=== PATIENT | female | born 1995 | race African-American/Black ===

== ENCOUNTER 2016-12-14 03:27 | Emergency (ER) | payer BC, OTHER ==
[~2016-12-14] VITALS: Ht 177.8 cm; Wt 93.4 kg
[~2016-12-14 03:27] MED LIST: ACETAMINOPHEN-120 ML PO; NAPROSYN500 MG PO; NOHOMEMEDICATIONS; PHENERGAN 25 MG25 MG PO
[2016-12-14 03:28] VITALS: BP 132/65
[2016-12-14] MEDS ORDERED: TOBREX5 ML OPHTHALMIC (03:50)
[2016-12-14] MEDS ORDERED: PREDNISONE 20 M20 MG PO (03:50)
== END 2016-12-14 04:27 | disposition home or self-care (01) ==
LOC: ER 03:27
DX: H01.004 Unspecified blepharitis left upper eyelid (principal); H01.005 Unspecified blepharitis left lower eyelid; L50.9 Urticaria, unspecified

== ENCOUNTER 2017-01-20 05:01 | Emergency (ER) | payer BC, OTHER ==
[~2017-01-20] VITALS: Ht 177.8 cm; Wt 96.6 kg
[~2017-01-20 05:01] MED LIST changes: +PREDNISONE 20 M20 MG PO; +TOBREX5 ML OPHTHALMIC
[2017-01-20 05:42] LABS: HEMATOCRIT 37.2 % (37.0-47.0); HEMOGLOBIN 12.4 gm/dL (12.0-15.0); MCH 30.1 pg (26.0-34.0); MCHC 33.5 g/dL (28.0-37.0); MCV 89.9 fL (80.0-100.0); PLATELET COUNT 288 thou/uL (150-400); RBC 4.14 mil/uL (4.20-5.00); RDW 14.2 % (10.5-14.5); WBC 14.1 thou/uL (4.0-11.0)
[2017-01-20 05:50] LABS: MANUAL DIFF YES
[2017-01-20 05:50] LABS: URINE BILIRUBIN NEGATIVE (Negative); URINE BLOOD NEGATIVE (Negative); URINE COLOR YELLOW; URINE GLUCOSE-RANDOM* NEGATIVE (Negative); URINE KETONES NEGATIVE (Negative); URINE LEUKOCYTES-REFLEX NEGATIVE (Negative); URINE PROTEIN (DIPSTICK) TRACE (Negative); URINE SPECIFIC GRAVITY 1.025 (1.003-1.035); URINE UROBILINOGEN 0.2 E.U./dl (0.2-1.0)
[2017-01-20 05:56] LABS: CALCIUM 8.7 mg/dL (8.5-10.1); CREATININE 0.8 mg/dL (0.6-1.0); POTASSIUM 3.6 mmol/L (3.5-5.1)
[2017-01-20] MEDS ORDERED: ZOFRAN ODT8 MG PO (05:59)
[2017-01-20] MEDS ORDERED: TRAMADOL 50 MG50 MG PO (05:59)
[2017-01-20 06:01] LABS: ALBUMIN 3.9 g/dL (3.4-5.0); TOTAL BILIRUBIN 0.5 mg/dL (<0.1-1.0); TOTAL PROTEIN 8.2 g/dL (6.4-8.2)
[2017-01-20 06:43] LABS: ABSOLUTE NEUTROPHILS 13.3 thou/uL (1.4-8.2); ANISOCYTOSIS 1+; TOTAL CELL COUNT 100
[2017-01-20 08:33] VITALS: BP 141/84
== END 2017-01-20 08:05 | disposition home or self-care (01) ==
LOC: ER 05:01
PROVIDERS: Emergency Medicine
DX: K52.9 Noninfective gastroenteritis and colitis, unspecified (principal); F17.200 Nicotine dependence, unspecified, uncomplicated

== ENCOUNTER 2017-01-22 12:52 | Emergency (ER) | payer BC, OTHER ==
[~2017-01-22] VITALS: Ht 180.3 cm; Wt 72.6 kg
[~2017-01-22 12:52] MED LIST changes: +TRAMADOL 50 MG50 MG PO; +ZOFRAN ODT8 MG PO
[2017-01-22 13:39] LABS: URINE BILIRUBIN NEGATIVE (Negative); URINE BLOOD TRACE (Negative); URINE COLOR YELLOW; URINE GLUCOSE-RANDOM* NEGATIVE (Negative); URINE KETONES NEGATIVE (Negative); URINE LEUKOCYTES-REFLEX NEGATIVE (Negative); URINE PROTEIN (DIPSTICK) NEGATIVE (Negative); URINE SPECIFIC GRAVITY 1.015 (1.003-1.035); URINE UROBILINOGEN 0.2 E.U./dl (0.2-1.0)
[2017-01-22 15:10] LABS: ABSOLUTE NEUTROPHILS 8.6 thou/uL (1.4-8.2); BASOPHILS 0.2 % (0.0-2.0); EOSINOPHILS 0.4 % (0.0-3.0); HEMATOCRIT 37.5 % (37.0-47.0); HEMOGLOBIN 12.7 gm/dL (12.0-15.0); LYMPHOCYTES 12.4 % (24.0-44.0); MCH 30.5 pg (26.0-34.0); MCHC 33.9 g/dL (28.0-37.0); MONOCYTES 6.7 % (1.0-8.0); PLATELET COUNT 259 thou/uL (150-400); POLYS 80.3 % (36.0-66.0); RBC 4.17 mil/uL (4.20-5.00); WBC 10.7 thou/uL (4.0-11.0)
[2017-01-22 15:16] LABS: MANUAL DIFF NO
[2017-01-22 15:19] LABS: CALCIUM 8.5 mg/dL (8.5-10.1); CREATININE 0.7 mg/dL (0.6-1.0); POTASSIUM 3.3 mmol/L (3.5-5.1)
[2017-01-22 15:24] LABS: ALBUMIN 3.5 g/dL (3.4-5.0); TOTAL BILIRUBIN 0.3 mg/dL (<0.1-1.0); TOTAL PROTEIN 7.5 g/dL (6.4-8.2)
[2017-01-22 17:06] VITALS: BP 138/96
== END 2017-01-22 17:24 | disposition home or self-care (01) ==
LOC: ER 12:52
PROVIDERS: Physician Assistant
DX: R11.10 Vomiting, unspecified (principal); R10.84 Generalized abdominal pain

== ENCOUNTER 2017-03-11 14:47 | Emergency (ER) | payer BC, OTHER | END 2017-03-11 17:25 | disposition home or self-care (01) | LOC: ER 14:47 | DX: R10.84 Generalized abdominal pain (principal); R11.2 Nausea with vomiting, unspecified; R19.7 Diarrhea, unspecified ==

== ENCOUNTER 2018-08-24 14:09 | Emergency (ER) | payer BC, OTHER ==
[~2018-08-24] VITALS: Ht 180.3 cm; Wt 97.5 kg
[~2018-08-24 14:09] MED LIST changes: +MOBIC7.5 MG PO; +ONDANSETRON HCL4 M2 PO
[2018-08-24 15:17] LABS: ABSOLUTE NEUTROPHILS 11.6 thou/uL (1.4-8.2); BASOPHILS 0.1 % (0.0-2.0); HEMATOCRIT 37.4 % (37.0-47.0); HEMOGLOBIN 12.9 gm/dL (12.0-15.0); LYMPHOCYTES 6.2 % (24.0-44.0); MCH 30.7 pg (26.0-34.0); MCHC 34.5 g/dL (28.0-37.0); MCV 88.9 fL (80.0-100.0); MONOCYTES 2.5 % (1.0-8.0); PLATELET COUNT 279 thou/uL (150-400); POLYS 91.2 % (36.0-66.0); RBC 4.21 mil/uL (4.20-5.00); RDW 13.7 % (10.5-14.5); WBC 12.8 thou/uL (4.0-11.0)
[2018-08-24 15:24] LABS: CALCIUM 9.5 mg/dL (8.5-10.1); CREATININE 0.7 mg/dL (0.6-1.0); POTASSIUM 3.3 mmol/L (3.5-5.1)
[2018-08-24 15:30] LABS: TOTAL BILIRUBIN 0.6 mg/dL (<0.1-1.0); TOTAL PROTEIN 8.3 g/dL (6.4-8.2)
[2018-08-24 15:49] VITALS: BP 130/88
[2018-08-24 16:11] LABS: URINE BILIRUBIN NEGATIVE (Negative); URINE BLOOD TRACE (Negative); URINE CLARITY CLEAR; URINE COLOR YELLOW; URINE GLUCOSE-RANDOM* NEGATIVE (Negative); URINE KETONES 3+ (Negative); URINE LEUKOCYTES-REFLEX NEGATIVE (Negative); URINE NITRITE-REFLEX NEGATIVE (Negative); URINE PROTEIN (DIPSTICK) TRACE (Negative); URINE UROBILINOGEN 0.2 E.U./dl (0.2-1.0)
[2018-08-24] MEDS ORDERED: LEVSIN0.125 MG PO (16:58)
[2018-08-24] MEDS ORDERED: ONDANSETRON HCL4 M2 PO (16:58)
--- NOTE | 2018-08-25 10:57 | EKG ---
[address] [address] ELECTROCARDIOGRAM REPORT Name: IZABEL TREVINO Room #: [place]#: [id number] Admission: 08/24/18 Attend Phys: Discharge: 08/24/18 Date of : [birth year] Report #: [id number] THIS REPORT FOR: //name// [facility] ED Test Date: 2018-08-24 Test Time: 15:12:58 Pat Name: IZABEL TREVINO Department: Room: Gender: F [employer] Assistant: TOLU : 1995 Requested By: Milana Dorantes Order Number: [id number] MD: Brice Herzog Measurements Intervals [place] Rate: 68 P: 73 FL: 180 QRS: 79 QRSD: 106 T: 29 QT: 416 QTc: 443 Interpretive Statements Sinus rhythm Probable left atrial enlargement No previous ECG available for comparison Electronically Signed On 08-25-2018 10:56:53 MARINE FITTER by Brice Herzog [email or web address] <ELECTRONICALLY SIGNED> By: Brice Herzog MD 08/25/18 1056 1512 1512 Brice Herzog MD /EPI
== END 2018-08-24 17:09 | disposition home or self-care (01) ==
LOC: ER 14:09
PROVIDERS: Physician Assistant
DX: R10.84 Generalized abdominal pain (principal); E86.0 Dehydration; R11.2 Nausea with vomiting, unspecified; E87.6 Hypokalemia; F12.10 Cannabis abuse, uncomplicated

== ENCOUNTER 2018-08-25 20:21 | Emergency (ER) | payer BC, OTHER ==
[~2018-08-25] VITALS: Ht 180.3 cm; Wt 97.5 kg
[~2018-08-25 20:21] MED LIST changes: +LEVSIN0.125 MG PO
[2018-08-25 21:01] LABS: URINE BILIRUBIN NEGATIVE (Negative); URINE BLOOD NEGATIVE (Negative); URINE CLARITY CLEAR; URINE COLOR YELLOW; URINE GLUCOSE-RANDOM* NEGATIVE (Negative); URINE KETONES NEGATIVE (Negative); URINE LEUKOCYTES-REFLEX NEGATIVE (Negative); URINE NITRITE-REFLEX NEGATIVE (Negative); URINE PROTEIN (DIPSTICK) NEGATIVE (Negative); URINE SPECIFIC GRAVITY 1.025 (1.005-1.035)
[2018-08-25 21:11] LABS: AMP/METHAMP Negative (Negative); BARBITURATES Negative (Negative); BENZODIAZEPINES Negative (Negative); COCAINE Negative (Negative); METHADONE Negative (Negative); OPIATES Negative (Negative); PCP Negative (Negative)
[2018-08-25 22:03] VITALS: BP 123/74
== END 2018-08-25 22:09 | disposition home or self-care (01) ==
LOC: ER 20:21
PROVIDERS: Emergency Medicine
DX: G24.02 Drug induced acute dystonia (principal); Z79.899 Other long term (current) drug therapy

== ENCOUNTER 2018-12-22 22:34 | Emergency (ER) | payer BC, OTHER ==
[~2018-12-22] VITALS: Ht 180.3 cm; Wt 95.3 kg
[2018-12-22 23:36] LABS: URINE BILIRUBIN NEGATIVE (Negative); URINE BLOOD NEGATIVE (Negative); URINE CLARITY CLEAR; URINE COLOR YELLOW; URINE GLUCOSE-RANDOM* NEGATIVE (Negative); URINE KETONES NEGATIVE (Negative); URINE LEUKOCYTES NEGATIVE (Negative); URINE NITRITE NEGATIVE (Negative); URINE PROTEIN (DIPSTICK) TRACE (Negative); URINE SPECIFIC GRAVITY >= 1.030 (1.005-1.035); URINE UROBILINOGEN 0.2 E.U./dl (0.2-1.0)
[2018-12-22 23:40] LABS: ABSOLUTE NEUTROPHILS 4.5 thou/uL (1.4-8.2); EOSINOPHILS 3.4 % (0.0-3.0); HEMATOCRIT 36.4 % (37.0-47.0); HEMOGLOBIN 12.3 gm/dL (12.0-15.0); LYMPHOCYTES 37.3 % (24.0-44.0); MCH 30.7 pg (26.0-34.0); MCHC 33.9 g/dL (28.0-37.0); MCV 90.5 fL (80.0-100.0); MONOCYTES 7.7 % (1.0-8.0); PLATELET COUNT 244 thou/uL (150-400); POLYS 50.6 % (36.0-66.0); RBC 4.02 mil/uL (4.20-5.00); RDW 13.5 % (10.5-14.5); WBC 8.9 thou/uL (4.0-11.0)
[2018-12-22 23:44] LABS: CALCIUM 8.6 mg/dL (8.5-10.1); CREATININE 0.6 mg/dL (0.6-1.0); POTASSIUM 3.3 mmol/L (3.5-5.1)
[2018-12-22 23:50] LABS: ALBUMIN 3.8 g/dL (3.4-5.0); TOTAL BILIRUBIN 0.3 mg/dL (<0.1-1.0); TOTAL PROTEIN 7.5 g/dL (6.4-8.2)
[2018-12-23] MEDS ORDERED: NORCO 5-325 TA1 EAC1 PO (01:30)
[2018-12-23 01:37] VITALS: BP 135/97
== END 2018-12-23 01:37 | disposition home or self-care (01) ==
LOC: ER 22:34
PROVIDERS: Emergency Medicine
DX: R10.32 Left lower quadrant pain (principal); F17.210 Nicotine dependence, cigarettes, uncomplicated; Z90.49 Acquired absence of other specified parts of digestive tract

== ENCOUNTER 2019-01-01 13:24 | Emergency (ER) | payer BC, OTHER ==
[~2019-01-01] VITALS: Ht 180.3 cm; Wt 95.3 kg
[~2019-01-01 13:24] MED LIST changes: +NORCO 5-325 TA1 EAC1 PO
[2019-01-01 13:49] LABS: URINE BILIRUBIN NEGATIVE (Negative); URINE BLOOD NEGATIVE (Negative); URINE CLARITY CLEAR; URINE COLOR YELLOW; URINE GLUCOSE-RANDOM* NEGATIVE (Negative); URINE KETONES NEGATIVE (Negative); URINE LEUKOCYTES-REFLEX NEGATIVE (Negative); URINE NITRITE-REFLEX NEGATIVE (Negative); URINE PROTEIN (DIPSTICK) TRACE (Negative); URINE SPECIFIC GRAVITY 1.015 (1.005-1.035)
[2019-01-01 14:38] LABS: ABSOLUTE NEUTROPHILS 10.6 thou/uL (1.4-8.2); BASOPHILS 0.5 % (0.0-2.0); HEMATOCRIT 33.6 % (37.0-47.0); HEMOGLOBIN 11.3 gm/dL (12.0-15.0); LYMPHOCYTES 9.9 % (24.0-44.0); MCH 30.1 pg (26.0-34.0); MCHC 33.6 g/dL (28.0-37.0); MCV 89.7 fL (80.0-100.0); MONOCYTES 4.5 % (1.0-8.0); PLATELET COUNT 262 thou/uL (150-400); POLYS 84.1 % (36.0-66.0); RBC 3.75 mil/uL (4.20-5.00); RDW 13.5 % (10.5-14.5); WBC 12.6 thou/uL (4.0-11.0)
[2019-01-01 14:43] LABS: ANION GAP 9 mmol/L (7-16); BUN 6 mg/dL (7-18); CALCIUM 8.7 mg/dL (8.5-10.1); CHLORIDE 105 mmol/L (98-107); CO2 23 mmol/L (21-32); CREATININE 0.6 mg/dL (0.6-1.0); GLUCOSE 107 mg/dL (74-106); POTASSIUM 3.8 mmol/L (3.5-5.1); SODIUM 137 mmol/L (136-145)
[2019-01-01 14:50] LABS: ALBUMIN 3.4 g/dL (3.4-5.0); DIRECT BILIRUBIN < 0.1 mg/dL (<0.1-0.3); LIPASE 73 U/L (73-393); SGOT 23 U/L (15-37); SGPT 18 U/L (30-65); TOTAL BILIRUBIN 0.3 mg/dL (<0.1-1.0); TOTAL PROTEIN 7.3 g/dL (6.4-8.2)
[2019-01-01 16:37] VITALS: BP 136/87
== END 2019-01-01 16:37 | disposition home or self-care (01) ==
LOC: ER 13:24
PROVIDERS: Emergency Medicine
DX: R10.9 Unspecified abdominal pain (principal); R11.2 Nausea with vomiting, unspecified; F17.210 Nicotine dependence, cigarettes, uncomplicated; Z90.49 Acquired absence of other specified parts of digestive tract

== ENCOUNTER 2019-01-03 14:13 | Emergency (ER) | payer BC, OTHER ==
[~2019-01-03] VITALS: Ht 180.3 cm; Wt 95.3 kg
[2019-01-03] MEDS ORDERED: MOBIC7.5 MG PO (16:42)
[2019-01-03] MEDS ORDERED: ULTRAM 50MG TAB50 MG PO (16:42)
[2019-01-03 17:00] VITALS: BP 130/81
== END 2019-01-03 17:01 | disposition home or self-care (01) ==
LOC: ER 14:13
DX: R10.84 Generalized abdominal pain (principal); R11.2 Nausea with vomiting, unspecified; Z90.49 Acquired absence of other specified parts of digestive tract; F17.210 Nicotine dependence, cigarettes, uncomplicated

== ENCOUNTER 2019-02-07 18:48 | Emergency (ER) | payer BC, OTHER ==
[~2019-02-07] VITALS: Ht 180.3 cm; Wt 93.0 kg
[~2019-02-07 18:48] MED LIST changes: +ULTRAM 50MG TAB50 MG PO
[2019-02-07 19:51] LABS: URINE BILIRUBIN NEGATIVE (Negative); URINE BLOOD NEGATIVE (Negative); URINE CLARITY CLEAR; URINE COLOR YELLOW; URINE GLUCOSE-RANDOM* NEGATIVE (Negative); URINE KETONES NEGATIVE (Negative); URINE LEUKOCYTES-REFLEX NEGATIVE (Negative); URINE NITRITE-REFLEX NEGATIVE (Negative); URINE PROTEIN (DIPSTICK) NEGATIVE (Negative); URINE SPECIFIC GRAVITY 1.015 (1.005-1.035); URINE UROBILINOGEN 0.2 E.U./dl (0.2-1.0)
[2019-02-07 19:58] LABS: CALCIUM 8.9 mg/dL (8.5-10.1); CREATININE 0.7 mg/dL (0.6-1.0); POTASSIUM 3.9 mmol/L (3.5-5.1)
[2019-02-07 19:59] LABS: ABSOLUTE NEUTROPHILS 3.8 thou/uL (1.4-8.2); BASOPHILS 0.3 % (0.0-2.0); EOSINOPHILS 1.7 % (0.0-3.0); HEMATOCRIT 36.3 % (37.0-47.0); HEMOGLOBIN 12.2 gm/dL (12.0-15.0); LYMPHOCYTES 34.6 % (24.0-44.0); MCH 29.8 pg (26.0-34.0); MCHC 33.6 g/dL (28.0-37.0); MCV 88.9 fL (80.0-100.0); MONOCYTES 8.8 % (1.0-8.0); PLATELET COUNT 287 thou/uL (150-400); POLYS 54.6 % (36.0-66.0); RBC 4.08 mil/uL (4.20-5.00); RDW 13.6 % (10.5-14.5)
[2019-02-07 20:04] LABS: ALBUMIN 3.8 g/dL (3.4-5.0); TOTAL BILIRUBIN 0.3 mg/dL (<0.1-1.0); TOTAL PROTEIN 8.1 g/dL (6.4-8.2)
[2019-02-07] MEDS ORDERED: LEVSIN0.125 MG PO (21:39)
[2019-02-07] MEDS ORDERED: TRAMADOL 50 MG50 MG PO (21:44)
[2019-02-07 22:06] VITALS: BP 132/66
== END 2019-02-07 22:13 | disposition home or self-care (01) ==
LOC: ER 18:48
PROVIDERS: Emergency Medicine
DX: K80.20 Calculus of gallbladder without cholecystitis without obstruction (principal); K59.00 Constipation, unspecified; F17.210 Nicotine dependence, cigarettes, uncomplicated; Z90.49 Acquired absence of other specified parts of digestive tract

== ENCOUNTER 2019-03-12 13:02 | Emergency (ER) | payer BC, OTHER ==
[~2019-03-12] VITALS: Ht 180.3 cm; Wt 91.2 kg
[2019-03-12 13:41] LABS: ABSOLUTE NEUTROPHILS 3.2 thou/uL (1.4-8.2); BASOPHILS 0.5 % (0.0-2.0); EOSINOPHILS 6.9 % (0.0-3.0); HEMATOCRIT 35.4 % (37.0-47.0); HEMOGLOBIN 12.1 gm/dL (12.0-15.0); LYMPHOCYTES 37.4 % (24.0-44.0); MCH 30.3 pg (26.0-34.0); MCHC 34.2 g/dL (28.0-37.0); MCV 88.6 fL (80.0-100.0); MONOCYTES 7.4 % (1.0-8.0); PLATELET COUNT 300 thou/uL (150-400); POLYS 47.8 % (36.0-66.0); RDW 14.4 % (10.5-14.5); WBC 6.7 thou/uL (4.0-11.0)
[2019-03-12 14:12] LABS: CALCIUM 8.8 mg/dL (8.5-10.1); CREATININE 0.7 mg/dL (0.6-1.0); POTASSIUM 3.7 mmol/L (3.5-5.1)
[2019-03-12 14:17] LABS: ALBUMIN 3.6 g/dL (3.4-5.0); TOTAL BILIRUBIN 0.4 mg/dL (<0.1-1.0); TOTAL PROTEIN 7.6 g/dL (6.4-8.2)
[2019-03-12 15:07] LABS: URINE BILIRUBIN NEGATIVE (Negative); URINE BLOOD NEGATIVE (Negative); URINE CLARITY CLEAR; URINE COLOR YELLOW; URINE GLUCOSE-RANDOM* NEGATIVE (Negative); URINE KETONES NEGATIVE (Negative); URINE LEUKOCYTES-REFLEX NEGATIVE (Negative); URINE NITRITE-REFLEX NEGATIVE (Negative); URINE PROTEIN (DIPSTICK) 1+ (Negative); URINE SPECIFIC GRAVITY 1.015 (1.005-1.035)
[2019-03-12 15:14] LABS: AMP/METHAMP Negative (Negative); BARBITURATES Negative (Negative); BENZODIAZEPINES Negative (Negative); COCAINE Negative (Negative); METHADONE Negative (Negative); OPIATES Negative (Negative); PCP Negative (Negative)
[2019-03-12 15:17] LABS: SQUAMOUS 4-10 Moderate /LPF (0-3); URINE WBC-REFLEX 0-5 Rare /HPF (0-5); WBC CLUMPS Few (None Seen)
[2019-03-12 15:18] LABS: AMORPHOUS URATES Many /LPF (None Seen); BACTERIA-REFLEX 1-9 Few /HPF (None Seen); CASTS None Seen /LPF (None Seen); URINE RBC None Seen /HPF (0-2)
[2019-03-12] MEDS ORDERED: ONDANSETRON HCL4 M2 PO (15:25)
[2019-03-12 15:33] VITALS: BP 134/61
== END 2019-03-12 15:37 | disposition home or self-care (01) ==
LOC: ER 13:02
PROVIDERS: Nurse Practitioner Family
DX: R11.2 Nausea with vomiting, unspecified (principal); F17.210 Nicotine dependence, cigarettes, uncomplicated; Z90.49 Acquired absence of other specified parts of digestive tract

== ENCOUNTER 2019-04-05 09:11 | Emergency (ER) | payer BC, OTHER ==
[~2019-04-05] VITALS: Ht 180.3 cm; Wt 90.7 kg
[2019-04-05 09:45] LABS: URINE BILIRUBIN NEGATIVE (Negative); URINE BLOOD 3+ (Negative); URINE CLARITY CLOUDY; URINE COLOR RED; URINE GLUCOSE-RANDOM* NEGATIVE (Negative); URINE KETONES NEGATIVE (Negative); URINE LEUKOCYTES-REFLEX TRACE (Negative); URINE NITRITE-REFLEX NEGATIVE (Negative); URINE PROTEIN (DIPSTICK) 2+ (Negative); URINE SPECIFIC GRAVITY 1.025 (1.005-1.035)
[2019-04-05 09:45] LABS: ABSOLUTE NEUTROPHILS 4.3 thou/uL (1.4-8.2); BASOPHILS 0.5 % (0.0-2.0); HEMATOCRIT 36.2 % (37.0-47.0); HEMOGLOBIN 11.9 gm/dL (12.0-15.0); LYMPHOCYTES 29.2 % (24.0-44.0); MCH 29.7 pg (26.0-34.0); MCV 90.2 fL (80.0-100.0); MONOCYTES 8.9 % (1.0-8.0); PLATELET COUNT 302 thou/uL (150-400); POLYS 58.4 % (36.0-66.0); RBC 4.01 mil/uL (4.20-5.00); RDW 14.5 % (10.5-14.5); WBC 7.3 thou/uL (4.0-11.0)
[2019-04-05 09:47] LABS: CALCIUM 8.8 mg/dL (8.5-10.1); CREATININE 0.6 mg/dL (0.6-1.0); POTASSIUM 3.6 mmol/L (3.5-5.1)
[2019-04-05 09:50] LABS: CASTS None Seen /LPF (None Seen); SQUAMOUS 4-10 Moderate /LPF (0-3); URINE RBC >20 Many /HPF (0-2)
[2019-04-05 09:51] LABS: BACTERIA-REFLEX 1-9 Few /HPF (None Seen); CRYSTALS None Seen /LPF (None Seen); URINE WBC-REFLEX 6-15 Few /HPF (0-5)
[2019-04-05 09:53] LABS: ALBUMIN 3.7 g/dL (3.4-5.0); DIRECT BILIRUBIN 0.1 mg/dL (<0.1-0.3); TOTAL BILIRUBIN 0.2 mg/dL (<0.1-1.0); TOTAL PROTEIN 7.9 g/dL (6.4-8.2)
[2019-04-05] MEDS ORDERED: ZOFRAN ODT4 MG PO (12:05)
[2019-04-05 12:19] VITALS: BP 133/82
== END 2019-04-05 12:37 | disposition home or self-care (01) ==
LOC: ER 09:11
PROVIDERS: Emergency Medicine
DX: R11.2 Nausea with vomiting, unspecified (principal); R10.84 Generalized abdominal pain; F17.210 Nicotine dependence, cigarettes, uncomplicated; Z90.49 Acquired absence of other specified parts of digestive tract

== ENCOUNTER 2019-04-26 07:40 | Emergency (ER) | payer BC, OTHER ==
[~2019-04-26] VITALS: Ht 180.3 cm; Wt 93.0 kg
[~2019-04-26 07:40] MED LIST changes: +ZOFRAN ODT4 MG PO
[2019-04-26 07:58] LABS: URINE BILIRUBIN NEGATIVE (Negative); URINE BLOOD NEGATIVE (Negative); URINE CLARITY CLEAR; URINE COLOR YELLOW; URINE GLUCOSE-RANDOM* NEGATIVE (Negative); URINE KETONES NEGATIVE (Negative); URINE NITRITE-REFLEX NEGATIVE (Negative); URINE PROTEIN (DIPSTICK) NEGATIVE (Negative); URINE SPECIFIC GRAVITY >= 1.030 (1.005-1.035); URINE UROBILINOGEN 0.2 E.U./dl (0.2-1.0)
[2019-04-26 08:01] LABS: URINE LEUKOCYTES-REFLEX 2+ (Negative)
[2019-04-26 08:10] LABS: SQUAMOUS >10 Many /LPF (0-3)
[2019-04-26 08:10] LABS: ABSOLUTE NEUTROPHILS 5.7 thou/uL (1.4-8.2); BASOPHILS 0.6 % (0.0-2.0); EOSINOPHILS 1.1 % (0.0-3.0); HEMATOCRIT 36.4 % (37.0-47.0); HEMOGLOBIN 12.2 gm/dL (12.0-15.0); LYMPHOCYTES 21.7 % (24.0-44.0); MCH 30.1 pg (26.0-34.0); MCHC 33.6 g/dL (28.0-37.0); MCV 89.5 fL (80.0-100.0); MONOCYTES 6.6 % (1.0-8.0); PLATELET COUNT 293 thou/uL (150-400); RBC 4.06 mil/uL (4.20-5.00); RDW 14.5 % (10.5-14.5); WBC 8.2 thou/uL (4.0-11.0)
[2019-04-26 08:11] LABS: URINE RBC 0-2 Rare /HPF (0-2)
[2019-04-26 08:12] LABS: BACTERIA-REFLEX 1-9 Few /HPF (None Seen); CASTS None Seen /LPF (None Seen); CRYSTALS None Seen /LPF (None Seen); URINE WBC-REFLEX 6-15 Few /HPF (0-5)
[2019-04-26 08:20] LABS: CREATININE 0.6 mg/dL (0.6-1.0); POTASSIUM 3.7 mmol/L (3.5-5.1)
[2019-04-26 08:29] LABS: TOTAL BILIRUBIN 0.3 mg/dL (<0.1-1.0); TOTAL PROTEIN 8.3 g/dL (6.4-8.2)
[2019-04-26] MEDS ORDERED: NAPROSYN500 MG PO (08:33)
[2019-04-26] MEDS ORDERED: ONDANSETRON HCL4 M2 PO (09:30)
[2019-04-26 10:00] VITALS: BP 128/81
== END 2019-04-26 10:00 | disposition home or self-care (01) ==
LOC: ER 07:40
PROVIDERS: Emergency Medicine
DX: K80.20 Calculus of gallbladder without cholecystitis without obstruction (principal); N72 Inflammatory disease of cervix uteri; F17.210 Nicotine dependence, cigarettes, uncomplicated

== ENCOUNTER 2020-04-18 14:16 | Emergency (ER) | payer BC, OTHER ==
[~2020-04-18] VITALS: Ht 170.2 cm; Wt 72.6 kg
[2020-04-18 14:53] LABS: HEMATOCRIT 37.4 % (37.0-47.0); HEMOGLOBIN 12.2 gm/dL (12.0-15.0); MCH 28.8 pg (26.0-34.0); MCHC 32.7 g/dL (28.0-37.0); RBC 4.25 mil/uL (4.20-5.00); RDW 15.4 % (10.5-14.5); WBC 14.1 thou/uL (4.0-11.0)
[2020-04-18 14:56] LABS: ANION GAP 14 mmol/L (7-16); BUN 7 mg/dL (7-18); CALCIUM 8.8 mg/dL (8.5-10.1); CHLORIDE 105 mmol/L (98-107); CO2 22 mmol/L (21-32); CREATININE 0.8 mg/dL (0.6-1.0); GLUCOSE 101 mg/dL (74-106); POTASSIUM 3.3 mmol/L (3.5-5.1); SODIUM 141 mmol/L (136-145)
[2020-04-18 15:03] LABS: ALBUMIN 4.2 g/dL (3.4-5.0); DIRECT BILIRUBIN < 0.1 mg/dL (<0.1-0.2); LIPASE 71 U/L (73-393); SGOT 21 U/L (15-37); SGPT 27 U/L (30-65); TOTAL BILIRUBIN 0.4 mg/dL (0.2-1.0); TOTAL PROTEIN 8.8 g/dL (6.4-8.2)
[2020-04-18 18:10] LABS: URINE BILIRUBIN NEGATIVE (Negative); URINE BLOOD 2+ (Negative); URINE CLARITY CLEAR; URINE COLOR YELLOW; URINE GLUCOSE-RANDOM* NEGATIVE (Negative); URINE KETONES NEGATIVE (Negative); URINE LEUKOCYTES-REFLEX NEGATIVE (Negative); URINE NITRITE-REFLEX NEGATIVE (Negative); URINE PROTEIN (DIPSTICK) NEGATIVE (Negative); URINE UROBILINOGEN 0.2 E.U./dl (0.2-1.0)
[2020-04-18 18:20] VITALS: BP 132/69
[2020-04-18 18:24] LABS: SQUAMOUS >10 Many /LPF (0-3)
[2020-04-18 18:25] LABS: CASTS None Seen /LPF (None Seen); URINE RBC 0-2 Rare /HPF (0-2); URINE WBC-REFLEX 0-5 Rare /HPF (0-5)
[2020-04-18 18:26] LABS: BACTERIA-REFLEX None Seen /HPF (None Seen); CRYSTALS None Seen /LPF (None Seen)
== END 2020-04-18 18:20 | disposition home or self-care (01) ==
LOC: ER 14:16
PROVIDERS: Emergency Medicine
DX: R11.2 Nausea with vomiting, unspecified (principal); F17.210 Nicotine dependence, cigarettes, uncomplicated

== ENCOUNTER 2020-10-19 18:17 | Emergency (ER) | payer OTHER ==
[~2020-10-19] VITALS: Ht 175.3 cm; Wt 95.7 kg
[2020-10-19] MEDS ORDERED: TESSALON PERLE100 MG PO (19:40)
[2020-10-19] MEDS ORDERED: ONDANSETRON HCL4 M2 PO (19:40)
[2020-10-19 20:04] VITALS: BP 140/93
== END 2020-10-19 20:05 | disposition home or self-care (01) ==
LOC: ER 18:17
DX: U07.1 COVID-19 (principal); F17.210 Nicotine dependence, cigarettes, uncomplicated; Z90.49 Acquired absence of other specified parts of digestive tract

== ENCOUNTER 2021-03-02 10:45 | Emergency (ER) | payer OTHER ==
[~2021-03-02] VITALS: Ht 177.8 cm; Wt 98.0 kg
[~2021-03-02 10:45] MED LIST changes: +TESSALON PERLE100 MG PO
[2021-03-02 10:48] VITALS: BP 142/75
[2021-03-02] MEDS ORDERED: TESSALON PERLE100 MG PO (11:29)
== END 2021-03-02 11:29 | disposition home or self-care (01) ==
LOC: ER 10:45
PROVIDERS: Student in an Organized Health Care Education/Training Program
DX: R68.83 Chills (without fever) (principal); Z20.822 Contact with and (suspected) exposure to COVID-19; R05 Cough; F17.210 Nicotine dependence, cigarettes, uncomplicated; Z90.49 Acquired absence of other specified parts of digestive tract

== ENCOUNTER 2021-04-23 10:58 | Emergency (ER) | payer OTHER ==
[~2021-04-23] VITALS: Ht 180.3 cm; Wt 99.8 kg
[2021-04-23] MEDS ORDERED: MOBIC15 MG PO (13:07)
[2021-04-23 13:43] VITALS: BP 137/81
== END 2021-04-23 13:35 | disposition home or self-care (01) ==
LOC: ER 10:58
DX: M79.622 Pain in left upper arm (principal); Z90.49 Acquired absence of other specified parts of digestive tract; V49.49XA Driver injured in collision with other motor vehicles in traffic accident, initial encounter; Y93.I9 Activity, other involving external motion; Y92.413 State road as the place of occurrence of the external cause; Y99.8 Other external cause status